=== PATIENT | female | born 1990 | race Two or more races ===

== ENCOUNTER 2021-04-08 17:39 | Emergency (ER) | payer MEDICAID ==
[~2021-04-08] VITALS: Ht 157.5 cm; Wt 54.4 kg
[2021-04-08] MEDS ORDERED: MAG HYDROX/AL HYDROX/SIMETH 30 ML UDC ONE (18:11)
[2021-04-08] MEDS ORDERED: LIDOCAINE VISCOUS 2% UD 15 ML UDC ONE (18:11)
[2021-04-08 18:30] LABS: BASOPHILS % (AUTO) 0.4 % (0.0-2.0); EOSINOPHILS % (AUTO) 0.7 % (0.0-6.0); HEMATOCRIT 39 % (33-45); HEMOGLOBIN 12.7 g/dL (11.5-14.8); MEAN CORPUSCULAR HGB CONC 33 g/dl (31.0-36.0); MEAN CORPUSCULAR VOLUME 91 fL (82-100); MONOCYTES # (AUTO) 0.7 /CMM (0.1-1.30); MONOCYTES % (AUTO) 8.4 % (2.0-12.0); NEUTROPHILS # (AUTO) 4.1 /CMM (1.8-8.9); NEUTROPHILS % (AUTO) 52.5 % (43.0-81.0); PLATELET COUNT (AUTO) 258 /CMM (150-450); RED BLOOD CELL COUNT(AUTO) 4.27 MIL/uL (4.0-5.2); WHITE BLOOD COUNT (AUTO) 7.8 K/uL (4.3-11.0)
[2021-04-08] MEDS ORDERED: IV NS 0.9% 1,000 ML BAG IV ONE (18:30)
[2021-04-08] MEDS ORDERED: LIDOCAINE VISCOUS 2% UD 15 ML UDC MM ONE (18:30)
[2021-04-08] MEDS ORDERED: MAG HYDROX/AL HYDROX/SIMETH 30 ML UDC PO ONE (18:30)
[2021-04-08] MEDS ORDERED: KETOROLAC TROMETHAMINE INJ 30 MG/ML VIAL IV ONE (18:30)
[2021-04-08] MEDS ORDERED: KETOROLAC TROMETHAMINE INJ 30 MG/ML VIAL ONE (18:38)
[2021-04-08 18:44] LABS: CALCIUM, SERUM 8.6 mg/dL (8.5-10.1); CARBON DIOXIDE 27 mmol/L (21-32); CHLORIDE 104 mmol/L (98-107); CREATININE 0.7 mg/dL (0.6-1.3); GLUCOSE 92 mg/dL (74-106); POTASSIUM 3.8 mmol/L (3.5-5.1); SODIUM SERUM 140 mmol/L (136-145); UREA NITROGEN, BLOOD 9 mg/dL (7-18)
[2021-04-08 18:56] LABS: ALANINE AMINOTRANSFERASE 14 U/L (12-78); ALBUMIN 3.8 g/dL (3.4-5.0); ALKALINE PHOSPHATASE 54 U/L (46-116); ASPARTATE AMINOTRANSFERASE 11 U/L (15-37); BILIRUBIN,DIRECT 0.1 mg/dL (0.0-0.2); BILIRUBIN,TOTAL 0.3 mg/dL (0.2-1.0); TOTAL PROTEIN, SERUM 7.2 g/dL (6.4-8.2)
--- NOTE | 2021-04-08 19:30 | NUR ---
ASSUMED CARE FOR PT AT THIS TIME. BIBSELF C/O CHEST PAIN RADIATING TO L ARM. VITAL SIGNS STABLE. RESPIRATIONS EVEN AND UNLABORED. NO ACUTE DISTRESS NOTED AT THIS TIME. PT RESTING COMFORTABLY IN BED.
[2021-04-08] MEDS ORDERED: LORA-259 PO (19:35)
[2021-04-08] MEDS ORDERED: AMOX-430 PO (19:58)
--- NOTE | 2021-04-08 20:25 | NUR ---
Patient discharged to home in stable condition. Written and verbal after care instructions given. Patient verbalizes understanding of instruction.IV removed. Catheter intact and site benign. Pressure and 4x4 applied to site. No bleeding noted.pt. ambulatory with a steady gait
[2021-04-09 00:30] VITALS: BP 124/79
== END 2021-04-08 20:25 | disposition home or self-care (01) ==
LOC: ER 17:43
DX: R07.89 Other chest pain (principal); F41.9 Anxiety disorder, unspecified; H66.92 Otitis media, unspecified, left ear; Z79.899 Other long term (current) drug therapy
CPT/HCPCS: 36415; 71045; 80048; 80076; 80307; 83690; 84484; 84703; 85025; 93005 ×2; 96360; 99285; J7030; J1885

== ENCOUNTER 2021-04-10 16:09 | Emergency (ER) | payer MEDICAID ==
[~2021-04-10] VITALS: Ht 157.5 cm; Wt 54.4 kg
[~2021-04-10 16:09] MED LIST: AMOX-430 PO; LORA-259 PO
[2021-04-10] MEDS ORDERED: AMOX-430 PO (16:53)
--- NOTE | 2021-04-10 17:13 | NUR ---
PATIENT A/OX4, BREATHING EVEN AND UNLABORED, NO SOB NOTED. DENIES PAIN, NO DISTRESS NOTED. Patient discharged to home in stable condition. Written and verbal after care instructions given. Patient verbalizes understanding of instruction.
[2021-04-10 17:14] VITALS: BP 128/77
== END 2021-04-10 17:14 | disposition home or self-care (01) ==
LOC: ER 16:13
DX: R51.9 Headache, unspecified (principal); F41.9 Anxiety disorder, unspecified; Z79.899 Other long term (current) drug therapy